=== PATIENT | male | born 1990 | race Caucasian/White ===

== ENCOUNTER → 2021-01-30 12:06 | Outpatient (BNVA) | payer OTHER, SELFPAY | PROVIDERS: Family Provider Speech-Language Pathologist; Visit Provider Emergency Medicine | DX: S62.644A Nondisplaced fracture of proximal phalanx of right ring finger, initial encounter for closed fracture (principal); X58.XXXA Exposure to other specified factors, initial encounter | CPT/HCPCS: 73130 ==